=== PATIENT | male | born 1945 | race Caucasian/White ===

== ENCOUNTER 2017-07-22 10:47 | Emergency (ER) | payer MEDICARE, OTHER ==
[~2017-07-22] VITALS: Ht 170.2 cm; Wt 68.0 kg
[~2017-07-22 10:47] MED LIST: ALBU90OI; Aspirin EC81 MG PO; CHOL10002; FENO54; FENOFIBRATE40 MG PO; METF500; Omeprazole20 M1; PANT40; TAMS.4ER
== END 2017-07-22 11:44 | disposition home or self-care (01) ==
LOC: ER 10:47
DX: Z46.6 Encounter for fitting and adjustment of urinary device (principal); Z79.899 Other long term (current) drug therapy; Z79.84 Long term (current) use of oral hypoglycemic drugs
CPT/HCPCS: 51705; 99283; C2627

== ENCOUNTER → 2020-05-22 | Outpatient (CLI) | payer MEDICARE, OTHER ==
[2020-05-22 18:36] LABS: Creatinine Urine 27.9 mg/dL (27.00-270.00); Protein, Urine Quantitative 17.8 mg/dL (0.0-11.9)
[2020-05-22 18:39] LABS: Microalbumin, Urine Quant. 59.2 mg/L (0.000-20.000)
== END | disposition home or self-care (01) ==
LOC: LAB 13:00 → LAB SHORT 13:00 → LAB FUT 05-21 09:55
PROVIDERS: Internal Medicine Nephrology
DX: E55.9 Vitamin D deficiency, unspecified (principal); N25.81 Secondary hyperparathyroidism of renal origin; E78.00 Pure hypercholesterolemia, unspecified; R76.9 Abnormal immunological finding in serum, unspecified; R94.5 Abnormal results of liver function studies; R94.6 Abnormal results of thyroid function studies; D51.8 Other vitamin B12 deficiency anemias; D52.8 Other folate deficiency anemias; D50.9 Iron deficiency anemia, unspecified; N18.30 Chronic kidney disease, stage 3 unspecified; D63.1 Anemia in chronic kidney disease
CPT/HCPCS: 81050; 82043; 82570; 84156

== ENCOUNTER → 2024-05-23 | Outpatient (CLI) | payer OTHER | LOC: LAB SHORT 14:06 → LAB 14:06 | DX: R82.90 Unspecified abnormal findings in urine (principal) | CPT/HCPCS: 87077; 87086; 87186 ==

== ENCOUNTER → 2024-07-27 | Outpatient (CLI) | payer OTHER | LOC: LAB 14:14 → LAB SHORT 14:14 | DX: T83.010A Breakdown (mechanical) of cystostomy catheter, initial encounter (principal); R82.998 Other abnormal findings in urine | CPT/HCPCS: 87077; 87086; 87186 ==